=== PATIENT | male | born 1995 | race Two or more races ===

== ENCOUNTER 2016-11-01 10:35 | Emergency (ER) | payer OTHER ==
[~2016-11-01] VITALS: Ht 180.3 cm; Wt 72.6 kg
[2016-11-01 10:41] VITALS: BP 126/71
[2016-11-01] MEDS ORDERED: ACETAMINOPHEN ES 500 MG TABLET ONE (10:55)
[2016-11-01] MEDS ORDERED: ACETAMINOPHEN 325 MG TABLET PO ONE (11:00)
[2016-11-01] MEDS ORDERED: TDAP [DIPH/PERTUSSIS/TET] 0.5 ML VIAL IM ONE ×2 (11:00)
== END 2016-11-01 11:09 | disposition home or self-care (01) ==
LOC: ER 10:37
DX: S01.81XA Laceration without foreign body of other part of head, initial encounter (principal); S00.83XA Contusion of other part of head, initial encounter; Y04.0XXA Assault by unarmed brawl or fight, initial encounter; Y92.89 Other specified places as the place of occurrence of the external cause; Y93.89 Activity, other specified; Y99.8 Other external cause status
CPT/HCPCS: 90715; A4606; Z7610